=== PATIENT | female | born 1950 | race Caucasian/White ===

== ENCOUNTER 2021-02-19 08:34 | Outpatient (CLI) | payer OTHER ==
[~2021-02-19 08:34] MED LIST: CATAFLAM50 MG PO; ORPH100T PO
== END 2021-02-19 08:51 | disposition home or self-care (01) ==
LOC: MAMO-SONO 08:34
PROVIDERS: ATTEND Family Medicine Adult Medicine
DX: N63.0 Unspecified lump in unspecified breast (principal); Z12.31 Encounter for screening mammogram for malignant neoplasm of breast; N64.59 Other signs and symptoms in breast

== ENCOUNTER 2021-11-29 10:37 | Outpatient (CLI) | payer OTHER | END 2021-11-29 10:39 | disposition home or self-care (01) | LOC: RAD 10:37 | PROVIDERS: ATTEND Family Medicine Adult Medicine | DX: M54.2 Cervicalgia (principal) ==

== ENCOUNTER 2022-08-24 08:46 | Outpatient (CLI) | payer OTHER | END 2022-08-24 15:42 | disposition home or self-care (01) | LOC: LAB 08:46 | PROVIDERS: ATTEND Psychiatry & Neurology Clinical Neurophysiology | DX: E53.8 Deficiency of other specified B group vitamins (principal); E03.9 Hypothyroidism, unspecified ==

== ENCOUNTER 2022-09-16 12:34 | Outpatient (CLI) | payer OTHER | END 2022-09-16 12:41 | disposition home or self-care (01) | LOC: TOM 12:34 | PROVIDERS: ATTEND Psychiatry & Neurology Clinical Neurophysiology | DX: F01.50 Vascular dementia, unspecified severity, without behavioral disturbance, psychotic disturbance, mood disturbance, and anxiety (principal); R41.81 Age-related cognitive decline; Z86.59 Personal history of other mental and behavioral disorders ==

== ENCOUNTER 2023-06-22 13:28 | Outpatient (CLI) | payer OTHER | END 2023-06-22 13:40 | disposition home or self-care (01) | LOC: MRI 13:28 | DX: M54.50 Low back pain, unspecified (principal); M48.061 Spinal stenosis, lumbar region without neurogenic claudication | CPT/HCPCS: 72148 ==

== ENCOUNTER → 2025-01-08 09:00 | Outpatient (CLI) | payer OTHER ==
[2025-01-08 10:06] LABS: URINE APPEARANCE Clear; URINE BILIRRUBIN Negative (NEGATIVE); URINE BLOOD Negative; URINE COLOR Yellow; URINE GLUCOSE Negative (NEGATIVE); URINE KETONE Negative (NEGATIVE); URINE LEUKOCYTE Negative; URINE NITRATE Negative; URINE PROTEIN Negative (NEGATIVE); URINE UROBILINOGEN 0.2 E.U./dl
[2025-01-08 10:11] LABS: URINE BACTERIA 236.2 uL (0.0-1933); URINE EPITHELIAL CELLS 18.3 uL (0.0-38.8); URINE RBC 12.2 uL (0.0-20.8); URINE WBC 8.5 uL (0.0-23.2)
[2025-01-08 10:14] LABS: HEMATOCRIT 37.3 % (36.0-45.00); HEMOGLOBIN 12.3 g/dL (12.0-15.00); MEAN CELL VOLUME 95.1 fL (80.00-100.00); MEAN CORPUSCULAR HEMOGLOBIN 31.4 pg (27.00-32.0); RED BLOOD COUNT 3.92 M/uL (4.00-6.00); RED CELL DISTRIBUTION WIDTH 13.9 % (11.5-14.5)
[2025-01-08 10:28] LABS: PLATELET COUNT 141 K/uL (150-450)
[2025-01-08 10:40] LABS: ob POSITIVE (NEGATIVE)
[2025-01-08 10:56] LABS: ALBUMIN 3.8 gm/dL (3.4-5.0); BILIRUBIN TOTAL 0.31 mg/dL (0.3-1.2); CALCIUM 9.4 mg/dL (8.5-10.1); CHOL HDL RATIO 1.9 (0-5.0); CREATININE SERUM 0.71 mg/dL (0.55-1.02); GFR 80.04; GLOBULINA 3.4 G/DL (2.4-3.5); POTASSIUM 4.38 mEq/L (3.5-5.1); TOTAL PROTEIN 7.2 gm/dL (6.4-8.2); TSH 1.85 uIU/mL (0.358-3.74)
== END | disposition home or self-care (01) ==
LOC: LAB 09:00
DX: I11.9 Hypertensive heart disease without heart failure (principal); E78.00 Pure hypercholesterolemia, unspecified; Z12.10 Encounter for screening for malignant neoplasm of intestinal tract, unspecified; E55.9 Vitamin D deficiency, unspecified; R73.01 Impaired fasting glucose